=== PATIENT | male | born 1990 | race Caucasian/White ===

== ENCOUNTER 2016-07-30 16:00 | Emergency (ER) | payer BC ==
[2016-07-30] MEDS ORDERED: OPTIRAY 350 100 ML VIAL HMH IV ONE (16:01)
[2016-07-30] MEDS ORDERED: ONDANSETRON 4 MG VIAL ONE (18:01)
[2016-07-30] MEDS ORDERED: SODIUM CHLORIDE 0.9% 1,000 ML ONE (18:01)
== END 2016-07-30 21:00 | disposition home or self-care (01) ==
LOC: ER 16:00
DX: R10.9 Unspecified abdominal pain (principal); A08.4 Viral intestinal infection, unspecified
CPT/HCPCS: 36415; 74177; 80053; 81003; 83690; 85025; 96361; 96374